=== PATIENT | female | born 1975 | race American Indian/Alaskan Native ===

== ENCOUNTER 2019-11-15 15:51 | Emergency (ER) | payer SELFPAY ==
[2019-11-15 17:17] VITALS: BP 112/78
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
== END 2019-11-15 20:20 | disposition left against medical advice (07) ==
LOC: ED 15:51
DX: M54.2 Cervicalgia (principal); Z53.21 Procedure and treatment not carried out due to patient leaving prior to being seen by health care provider